=== PATIENT | male | born 1990 | race Caucasian/White ===

== ENCOUNTER → 2024-12-22 08:01 | Outpatient (CLI) | payer OTHER, SELFPAY ==
--- NOTE | 2024-12-22 08:05 | DI.ECHO.S_ITS ---
[facility]+ [facility] : : [address] : : [place] : : [id number] : : Phone: [phone] Echocardiogram Report + + :Name: RAJENDRA CARDOSO Study Date: 12/22/2024 Height: 72 in : :Hospital ReadingLocation: Weight: 211 lb : : Gender: Male BSA: 2.2 m2 : :: 1990 Age: 34 yrs BP: 121/77 mmHg: :Reason For Study: ISCHEMIC HEART DISEASE : :Ordering Physician: FELICITA, : :MERA Performed By: Callum Anderson : :Referring: MERA MIMS : + + Interpretation Summary Left ventricular ejection fraction is estimated to be 50 +/- 5%. The right ventricle is mildly dilated. There is no significant valvular heart disease. Procedure: A two-dimensional transthoracic echocardiogram with color flow and Doppler was performed. The study quality was technically good. There is no prior echocardiogram noted for this patient. The patient was in normal sinus rhythm during the exam. Left Ventricle: The left ventricle is normal in size. There is normal left ventricular wall thickness. There is no ventricular septal defect visualized. Left ventricular ejection fraction is estimated to be 50 +/- 5%. There are no focal wall motion abnormalities. Diastolic parameters suggest probable normal left ventricular diastolic function and normal filling pressures. Right Ventricle: The right ventricle is mildly dilated. The right ventricular systolic function is normal. Atria: The left atrial size is normal. The right atrium is moderately dilated. There is no Doppler evidence for an interatrial shunt. Mitral Valve: There is a flat closure plane of the the mitral valve leaflets. There is no mitral regurgitation noted. Aortic Valve: The aortic valve is trileaflet. The aortic valve opens well. No aortic regurgitation is present. Tricuspid Valve: The tricuspid valve leaflets are thin and pliable. There is a trace or physiologic amount of tricuspid regurgitation. Pulmonic Valve: The pulmonic valve leaflets are thin and pliable; valve motion is normal. There is no pulmonic valvular regurgitation. Great Vessels: The aortic root is normal size. The dimensions of the ascending aorta are normal. The pulmonary artery is normal size. The inferior vena cava was not visualized. Pericardium/ Pleura There is no pericardial effusion. MMode/2D Measurements & Calculations LVIDd: 6.2 cm LVOT diam: 2.3 cm LVIDs: 4.5 cm Ao root diam: 3.4 cm FS: 26.4 % asc Aorta Diam: 3.3 cm EPSS: 0.77 cm Ao Arch Diam (Prox Trans): 1.4 cm IVSd: 0.76 cm LVPWd: 0.87 cm LV mark. diameter/BSA (cm/m^2): 2.8 LV sys. diameter/BSA (cm/m^2): 2.1 LA A2 area: 17.5 cm2 RA long axis: 5.0 cm LA A4 area: 18.3 cm2 RA area: 21.5 cm2 LA length (vol): 5.1 cm RA vol: 79.2 ml LA vol: 53.8 ml RA : 36.3 ml/m2 LA vol index: 24.7 ml/m2 RVD1 (basal): 4.5 cm RVD2 (mid): 4.3 cm TAPSE: 3.0 cm Doppler Measurements & Calculations Ao V2 max: 116.2 cm/sec LVOT Max Malcolm: 91.1 cm/sec Ao V2 mean: 90.7 cm/sec LV V1 max P.3 mmHg Ao max P.4 mmHg LV V1 VTI: 20.8 cm Ao mean P.5 mmHg IMLAGRO(I,D): 3.2 cm2 Ao V2 VTI: 26.9 cm MILAGRO(V,D): 3.3 cm2 sev ratio: 0.77 MILAGRO indexed to BSA (cm^2/m^2): 1.5 MV E max malcolm: 51.8 cm/sec PA V2 max: 67.4 cm/sec MV A max malcolm: 46.9 cm/sec PA V2 mean: 47.2 cm/sec MV E/A: 1.1 PA mean P.0 mmHg Med Peak E' Malcolm: 11.5 cm/sec PA pr(Accel): 12.2 mmHg E/E' med: 4.5 Lat Peak E' Malcolm: 12.7 cm/sec E/E' lat: 4.1 E/e' average: 4.3 MV dec time: 0.17 sec SV(LVOT): 86.4 ml Reading Physician:05:[id number] PM
== END ==
PROVIDERS: Referring Provider Chiropractor; Visit Provider Chiropractor
DX: I25.9 Chronic ischemic heart disease, unspecified (principal)
CPT/HCPCS: 93306